=== PATIENT | female | born 1990 | race Caucasian/White ===

== ENCOUNTER 2016-09-29 14:38 | Emergency (ER) | payer SELFPAY ==
[~2016-09-29] VITALS: Ht 170.2 cm; Wt 56.8 kg
[~2016-09-29 14:38] MED LIST: Docusate Sodium PO; Ibuprofen PO; subutex
[2016-09-29 15:12] VITALS: BP 135/75; PULSE 108; RESP 20; O2SAT 97
--- NOTE | 2016-09-29 15:28 | ED.REPORT ---
HPI-Preg Under 20 Weeks Date of Service Sep 29, 2016 ED Provider: Dr. Zackary Mireles MD A 25 year old female with a history of opiate and meth abuse presents to the ED complaining of vaginal bleeding that began a few days ago. She is concerned that she may be . Her last menstrual cycle was 4 months ago. Patient reports that she is bleeding through multiple pads a day. Associated symptoms include belching, abdominal pain, worsening rash, ear pain and nausea. Patient has been experiencing worsening anxiety attacks for the past few days. Patient last used meth 2 days ago "out of a Gatorade bottle". She has been using NuvaRing but removed the ring after the bleeding began. Patient has an bed at [facility] scheduled for 10/18. She denies any suicidal or homicidal ideation, or alcohol use. Nursing Notes Stated Complaint: AND BLEEDING Chief Complaint: Female Abdominal Pain Nursing Notes Reviewed: Yes Allergies: Coded Allergies: Potassium Clavulanate (Verified Adverse Reaction, Intermediate, nausea and vomiting, 09/29/16) amoxicillin trihydrate (Verified Adverse Reaction, Intermediate, nausea and vomiting, 09/29/16) Scheduled ([subutex]) 8 MG DAILY ([Docusate Sodium]) 100 MG CAPSULE 100 MG PO BID Scheduled PRN ([Ibuprofen]) 600 MG TABLET 600 MG PO Q6H PRN PRN For Mild Pain General Time Seen by Provider: 15:29 Chief Complaint Vaginal bleeding Context: : Preg test pending Hx Obtained From: Patient Arrived By: Walk-in Onset Occurred: 3 days ago Symptom Duration: Since onset Progression Since Onset: Unchanged Location: : Abdomen lower Quality: Painful Radiation: : None Severity: Current: Mild Severity: Maximum: Mild Associated with: Reports: Nausea, Rash, Vaginal bleeding, Vomiting Pertinent Negative: Pt denies other symptoms Recent Healthcare: No recent hospitalization, Recent doctor visit Past Medical History Past Medical History Notes: No PCP (Often uses Urgent Care) Past Medical History 08/2014: Delivered at [facility]; patient was on suboxone at the time O positive Past Surgical History None reported Family History Father of alcohol abuse Smoking History Current Every Day Smoker Social History Alcohol Use: Denies alcohol use Drug Use: Meth (For the past 6 years ) Other Social History: , Homeless Ambulatory Status Independent Review of Systems Constitutional: Denies: Chills, Fever Respiratory: Denies: Shortness of breath Cardiovascular: Denies: Chest pain GI: Reports: Abdominal pain, Belching, Nausea, Vomiting Female: Reports: , Vaginal bleeding - abnl Skin: Reports Rash Neurologic: Denies: Change LOC Complete sys rev & neg: except as marked. Ears / Nose / Throat: Reports: Earache bilateral Psychiatric: Reports: Anxiety, Denies: Homicidal ideation, Suicidal ideation Physical Exam Initial Vital Signs Vital Signs (First) Date Time Temp Pulse Resp B/P Pulse Ox O2 Delivery O2 Flow Rate FiO2 09/29/16 15:12 37.1 108 20 135/75 97 Initial VS: Reviewed Head / Eyes: Atraumatic, Normocephalic, PERRL Extremities: Vascular intact, Neuro intact, No swelling, No tenderness Neurologic: Alert, Oriented, Nonfocal General/Constitutional: Awake, Alert Abdomen: Atraumatic, Soft, Non-tender, BS normoactive, No palpable mass, No pulsatile mass Female Genitourinary: Exam deferred : Exam deferred ENT: Atraumatic, Airway patent, Mucous membranes moist Respiratory / Chest: Atraumatic, Breath sounds NL, Breath sounds = bilat Cardiovascular: Heart rate NL, Regular rhythm, Heart sounds NL, No gallop, No murmurs, No rubs Neck: Atraumatic, Supple, No adenopathy Skin: Atraumatic, Warm Rash / Lesion Notes: LEISON: Patient has numerous scab leisions Psychiatric: Not suicidal, Not homicidal Abnormal Mood/Affect: Positive: Anxious Interpretation & Diagnostics Urine Dip : Negative Positive: Methamphetamine Opiates Lab Results Interpretation Result Diagram: 09/29/16 1552 Test 09/29/16 15:52 09/29/16 16:03 09/29/16 16:10 White Blood Count 15.2th/mm3 (3.8-10.1) Red Blood Count 4.61mil/mm3 (3.90-5.20) Hemoglobin 13.7g/dL (12.0-15.6) Hematocrit 38.0% (35.0-46.0) Mean Corpuscular Volume 82.4fL (81-100) Mean Corpuscular Hemoglobin 29.7pg (27.0-35.0) Mean Corpuscular Hemoglobin Concent 36.1% (32.0-37.0) Red Cell Distribution Width 13.2% (12.3-15.4) Platelet Count 266bil/L (150-400) Neutrophils (%) (Auto) 78.5% (40-74) Lymphocytes (%) (Auto) 10.9% (14-46) Monocytes (%) (Auto) 9.1% (4-12) Eosinophils (%) (Auto) 0.9% (0-5) Basophils (%) (Auto) 0.3% (0-3) HCG Beta Subunit < 0.500mIU/mL Hold [place] Top Tube Received (Received) Urine Color Dark yellow (YELLOW) Urine Appearance Hazy (CLEAR,HAZY) Urine pH 6.0 (5.0-8.0) Urine Specific [place] 1.025 (1.003-1.035) Urine Protein 100mg/dL (NEG,TRACE) Urine Glucose (UA) Negativemg/dL (NEGATIVE) Urine Ketones 40mg/dL (NEGATIVE) Urine Occult Blood Large (NEGATIVE) Urine Nitrite Negative (NEGATIVE) Urine Bilirubin Negative (NEGATIVE) Urine Urobilinogen Normalmg/dL (NORMAL) Urine Leukocyte Esterase Trace (NEGATIVE) Urine RBC 11-50/hpf (0-2) Urine WBC 6-10/hpf (0-5) Urine Epithelial Cells Many/hpf (NONE-MOD) Urine Crystals None seen (NONE SEEN) Urine Bacteria Few/hpf (NONE-FEW) Urine Hyaline Casts None/lpf (NONE) Urine Granular Casts None seen (NONE SEEN) Urine Waxy Casts None seen (NONE SEEN) Urine Red Blood Cell Casts None seen (NONE SEEN) Urine White Blood Cell Casts None seen (NONE SEEN) Urine Mucus None seen (None Seen) Urine Trichomonas None seen (NONE SEEN) Urine Yeast None (NONE SEEN) Urinalysis Comment None Urine Culture Reflexed Indicated Re-Eval/Medical Decision Re-Evaluation/Progress : Time of Eval: 18:06 Patient Status: Condition improved Re-Evaluation/Progress Note: Patient is rechecked. She is informed of her lab results and diagnosis. All of the patient's questions are addressed. She understands and agrees with the treatment plan. Counseled Regarding: Diagnosis, Lab results, Need for follow-up, When/why to return to ED Discharge & Departure Primary Impression: Substance abuse Additional Impression: Vaginal bleeding Disposition: Home Discharge Condition All VS Reviewed: Yes Condition: Stable Additional Instructions: In the ED today we find a negative test. Recent use of meth is noted. Do not use meth. Follow up with [facility] as advised by social work , keep your bed date at N Referrals: Ileana Hopkins MD (PCP) Scribe Attestation Portions of this note were transcribed by Bora Davenport. I, Dr. Mireles personally performed the history, physical exam and medical decision-making; I reviewed and confirmed the accuracy of the information in the transcribed note. Signed by: Bora Davenport, 09/29/16, 1805. copies to: Ileana Hopkins MD, Donald L MD Sep 29, 2016 15:28 BORA DAVENPORT Sep 29, 2016 15:31
[2016-09-29] MEDS ORDERED: LORazepam 2 mg Tablet PO ONE (16:05)
[2016-09-29 16:06] LABS: BASOPHILS % (AUTO) 0.3 % (0-3); EOSINOPHILS % (AUTO) 0.9 % (0-5); MONOCYTES % (AUTO) 9.1 % (4-12); Mean Corpuscular Hemoglobin 29.7 pg (27.0-35.0); Mean Corpuscular Volume 82.4 fL (81-100); NEUTROPHILS % (AUTO) 78.5 % (40-74); Platelet Count 266 bil/L (150-400)
[2016-09-29 16:51] LABS: APPEARANCE,URINE HAZY (CLEAR,HAZY); COLOR,URINE DARK YELLOW (YELLOW); OCCULT BLOOD,URINE LARGE (NEGATIVE)
[2016-09-29 16:53] LABS: UROBILINOGEN,URINE NORMAL (NORMAL)
[2016-09-29 18:18] VITALS: PULSE 108; RESP 20; O2SAT 97
== END 2016-09-29 18:19 | disposition home or self-care (01) ==
LOC: MERGE 14:38 → SED 14:38
DX: F19.10 Other psychoactive substance abuse, uncomplicated (principal); N93.9 Abnormal uterine and vaginal bleeding, unspecified; F17.200 Nicotine dependence, unspecified, uncomplicated; Z88.1 Allergy status to other antibiotic agents; Z88.8 Allergy status to other drugs, medicaments and biological substances

== ENCOUNTER 2017-02-20 22:06 | Emergency (ER) | payer OTHER ==
[~2017-02-20] VITALS: Ht 170.2 cm; Wt 68.2 kg
--- NOTE | 2017-02-20 22:08 | ED.REPORT ---
HPI-Overdose/Alcohol Toxicity Date of Service Feb 20, 2017 ED Provider: Kris Frazier MD Pt is a healthy 32 y/o female w/ a hx of infrequent heroin use presenting to the ED via EMS due to heroin overdose which occurred about 1 hour prior to arrival. The patient was found unresponsive by her friend not breathing and EMS was called. The friend began CPR. Upon arrival of EMS, CPR was stopped and 2 mg IV and 2 mg nasal Narcan was administered at 21:30 leading to regain of consciousness up to GCS of 15. Her vitals were stable on route and was asymptomatic. She did not vomit. At time of arrival she is GCS of 15 and is asymptomatic. She denies any pain or discomfort, trouble breathing, nausea. This was the first time she used in a few months and nothing like this has ever happened before. She has no past medical history and takes no medications. Nursing Notes Stated Complaint: HEROIN OVERDOSE Nursing Notes Reviewed: Yes (SignNow, meds not reconciled) Allergies: Coded Allergies: Amoxicillin Trihydrate (Verified Allergy, Severe, "INTOLERENCE", 07/18/09) Potassium Clavulanate (Verified Allergy, Severe, "INTOLERENCE", 07/18/09) General Time Seen by Provider: 22:06 Chief Complaint Drug overdose Modifying Factors: No vomiting post-ingest, Accidental Initial Psychiatric Assessment: Deny suicidal intent/plan Hx Obtained From: Patient, EMS Arrived By: Ambulance Onset Occurred: 1 - 4 hours ago Symptom Duration: 16 - 30 minutes Progression Since Onset: Resolved Severity: Current: No pain currently Severity: Maximum: No pain Recent Healthcare: No recent doctor visit, No recent hospitalization Similar Sx Previous: No Risk-Overdose/Alcohol Tox )( Suicide Risk Stratification RF Statements: Risk factors N/A Past Medical History Past Medical History Denies Past Surgical History Hand surgery Smoking History Current Every Day Smoker Social History Drug Use: IV drugs, Other Ambulatory Status Independent Review of Systems Constitutional: Denies: Chills, Fever Respiratory: Denies: Non-productive cough, Shortness of breath Cardiovascular: Denies: Chest pain, Dyspnea on exertion GI: Denies: Abdominal pain, Nausea, Vomiting Neurologic: Reports: Change LOC, Denies: Focal weakness, Headache, Numbness Complete sys rev & neg: except as marked. Physical Exam Initial Vital Signs Vital Signs (First) Date Time Temp Pulse Resp B/P Pulse Ox O2 Delivery O2 Flow Rate FiO2 6/1/17 22:16 36.6 99 12 136/88 100 Room Air Initial VS: Reviewed, Vital signs normal Head / Eyes: Atraumatic, Normocephalic, PERRL ENT: Mucous membranes moist, Conjunctiva normal, No scleral icterus Neck: Supple, Full range of motion Extremities: Vascular intact, Neuro intact, No swelling, No tenderness Skin: Warm, Dry, No cyanosis General/Constitutional: Awake, Alert, No acute distress, Cooperative, Not toxic appearing Behavior: Positive: Anxious Respiratory / Chest: Atraumatic, Breath sounds NL, Breath sounds = bilat, No respiratory distress, No rales, No rhonchi, No wheezing Cardiovascular: Heart rate NL, Regular rhythm, Heart sounds NL, Cap refill not delayed, Peripheral circulation NL Abdomen: Atraumatic, Soft, Non-tender, No guarding, No rebound Neurologic: Oriented X3, Speech NL, No motor deficits, No sensory deficits Psychiatric: Not suicidal, No hallucinations Abnormal Mood/Affect: Positive: Anxious Interpretation & Diagnostics Lab Results Interpretation Test 02/20/17 22:32 Hold Purple Top Tube Received (Received) Hold Blue Top Tube Received (Received) Hold [place] Top Tube Received (Received) Lab Results Interpretation: Laboratory testing not indicated Re-Eval/Medical Decision Med Decision/Clinical Course This is a 32-year-old female brought by EMS following an accidental heroin overdose requiring 2 mg of intranasal Narcan, and a subsequent 2 mg of IV Narcan as the patient had required bystander CPR. Patient immediately woke up, and now has no complaints. The patient claims this is first time she has used heroin an upper months. She denies any chest pain, shortness breath or injuries and this did brief CPR. She denies any major medical problems. She denies any infectious complications of heroin use. The patient demonstrated no clinical signs of withdrawal, which would be consistent that she had not used for a while. She was observed, but had no re- sedation or recurrent intoxication. She has been provided resources. She has been provided Narcan prepack. A referral to the [facility] as provided. Patient is discharged in good condition Source of Hx: Old records, EMS Re-Evaluation/Progress : Time of Eval: 23:25 Re-Evaluation/Progress Note: Pt rechecked. Appears well. Asymptomatic. Informed pt of plan for treatment. Pt understands and agrees with plan for treatment. F/U instructions and RTER warnings given. All questions addressed. Differential Diagnosis: Positive: Overdose, narcotic, Negative: Alcohol abuse, Anxiety, Bipolar disorder, Conversion disorder, Homicidal, Intoxication, alcohol, Intoxication, other drug, Overdose, other, Panic disorder, Personality disorder, Schizophrenia, Substance abuse disorder, Suicidal attempt, Suicidal gesture Counseled Regarding: Diagnosis, Lab results, Need for follow-up, When/why to return to ED Discharge & Departure Impression: Primary Impression: Accidental heroin overdose Encounter type: initial encounter Qualified Code: T40.1X1A - Poisoning by heroin, accidental (unintentional), initial encounter )( Condition at Discharge: No danger to self, No danger to others, No suicidal ideation, No homicidal ideation Disposition: Home Discharge Condition All VS Reviewed: Yes Condition: Stable Additional Instructions: 1. You had stopped breathing and briefly required CPR. 2. Consider following up with [facility] for assistance staying away from heroin. 3. We have provided a sample of narcan (naloxone) that can be admininstered intranasally in setting of overdose after calling 911 to arrive. 4. Return if new or worsening symptoms. Referrals: [facility] Scribe Attestation Portions of this note were transcribed by Haseeb Miller. I, Dr. Frazier personally performed the history, physical exam and medical decision-making; I reviewed and confirmed the accuracy of the information in the transcribed note. Signed by Luisito Stephens, 02/20/17 - [id number] Kris Frazier MD Feb 20, 2017 22:08 HASEEB MILLER Feb 20, 2017 22:14
[2017-02-20] MEDS ORDERED: _Naloxone 2 mg/2 mL 2 Syringe Kit (NASAL USE) NASAL PRN (22:10)
[2017-02-20 22:16] VITALS: BP 136/88; PULSE 99; RESP 12; O2SAT 100
--- NOTE | 2017-02-20 22:29 | ED.REPORT ---
HPI-Overdose/Alcohol Toxicity Date of Service Feb 20, 2017 ED Provider: Kris Frazier MD Nursing Notes Stated Complaint: HEROIN OVERDOSE Chief Complaint: Substance Abuse Allergies: Coded Allergies: Amoxicillin Trihydrate (Verified Allergy, Severe, "INTOLERENCE", 07/18/09) Potassium Clavulanate (Verified Allergy, Severe, "INTOLERENCE", 07/18/09) Past Medical History Past Medical History Denies Past Surgical History Hand surgery Smoking History Current Every Day Smoker Social History Drug Use: IV drugs, Other Physical Exam Initial Vital Signs Vital Signs (First) Date Time Temp Pulse Resp B/P Pulse Ox O2 Delivery O2 Flow Rate FiO2 02/20/17 22:16 36.6 99 12 136/88 100 Room Air Interpretation & Diagnostics Lab Results Interpretation Test 02/20/17 22:32 Hold Purple Top Tube Received (Received) Hold Blue Top Tube Received (Received) Hold [place] Top Tube Received (Received) Kris Frazier MD Feb 20, 2017 22:29
[2017-02-20 23:04] VITALS: BP 141/83; PULSE 90; RESP 20; O2SAT 94
[2017-02-20 23:52] VITALS: BP 146/84; PULSE 90; RESP 17; O2SAT 96
== END 2017-02-20 23:40 | disposition home or self-care (01) ==
LOC: SED 22:06 → EDUNIT# 22:06 → EDBD 22:06 → SED 23:40
DX: T40.1X1A Poisoning by heroin, accidental (unintentional), initial encounter (principal); X58.XXXA Exposure to other specified factors, initial encounter; Y92.9 Unspecified place or not applicable; Y93.89 Activity, other specified; Y99.8 Other external cause status; F17.200 Nicotine dependence, unspecified, uncomplicated; R40.2412 Glasgow coma scale score 13-15, at arrival to emergency department; Z88.0 Allergy status to penicillin

== ENCOUNTER 2017-03-24 00:52 | Emergency (ER) | payer OTHER ==
[~2017-03-24] VITALS: Ht 170.2 cm; Wt 65.9 kg
[2017-03-24 00:55] VITALS: BP 128/85; PULSE 86; RESP 18; O2SAT 100
--- NOTE | 2017-03-24 01:42 | ED.REPORT ---
HPI-Eye Problem Date of Service Mar 24, 2017 ED Provider: Moises Evans DO Patient is a 26 year old female with a history of Hep C who presents to the ED complaining of bilateral eye erythema onset 3 days. Associated symptoms include itchiness and irritation. She reports that it started in her left eye but has since spread to her right eye. Nursing Notes Stated Complaint: LT/RT EYE IRRITATION Chief Complaint: Eye Nursing Notes Reviewed: Yes Allergies: Coded Allergies: Potassium Clavulanate (Verified Allergy, Severe, "INTOLERENCE", 03/24/17) amoxicillin trihydrate (Verified Allergy, Severe, "INTOLERENCE", 03/24/17) Scheduled ([subutex]) 8 MG DAILY ([Docusate Sodium]) 100 MG CAPSULE 100 MG PO BID Scheduled PRN ([Ibuprofen]) 600 MG TABLET 600 MG PO Q6H PRN PRN For Mild Pain General Time Seen by MD: 01:41 Chief Complaint Both eyes affected Hx Obtained From: Patient Arrived By: Walk-in Sudden in Onset?: Yes Onset Occurred: 3 days ago Symptom Duration: Since onset Location: : Eye both Severity: Current: Mild Recent Healthcare: No recent hospitalization, Recent doctor visit Similar Sx Previous: No Past Medical History Past Medical History Hep C Past Surgical History Hand surgery Smoking History Current Every Day Smoker Social History Drug Use: IV drugs, Other Ambulatory Status Independent Review of Systems Constitutional: Denies: Chills, Fever Eyes: Reports: Eye pain bilateral, Redness bilateral, Denies: Blurred bilateral, Visual loss bilateral Ears / Nose / Throat: Denies: Earache bilateral, Nasal congestion, Sore throat Skin: Denies Itching, Denies Rash Complete sys rev & neg: except as marked. Respiratory: Denies: Non-productive cough, Shortness of breath Physical Exam Initial Vital Signs Vital Signs (First) Date Time Temp Pulse Resp B/P Pulse Ox O2 Delivery O2 Flow Rate FiO2 03/24/17 00:55 36.8 86 18 128/85 100 Room Air Initial VS: Reviewed Head / Eyes: Atraumatic, Normocephalic visual acuity intact no cells in the interior chamber bilateral conjunctival injection yellow mattering of the left eye lid General/Constitutional: Awake, Alert, No acute distress Skin: Atraumatic, Color NL, No rash, Warm, Dry Neurologic: Oriented X3, Speech NL, No motor deficits, No sensory deficits Respiratory / Chest: Atraumatic, Breath sounds NL, Breath sounds = bilat, No respiratory distress Abdomen: Atraumatic, Soft, Non-tender Psychiatric: Affect NL, Mood NL Re-Eval/Medical Decision Med Decision/Clinical Course Bilateral conjunctival injection consistent with conjunctivitis. Patient was discharged with Erythromycin ointment. Re-Evaluation/Progress : Time of Eval: 01:50 Re-Evaluation/Progress Note: Discussed diagnosis and plan for discharge. Patient understands and agrees to plan. All questions were addressed. Counseled Regarding: Diagnosis, Need for follow-up, When/why to return to ED Discharge & Departure Primary Impression: Bilateral conjunctivitis Conjunctivitis type: acute Acute conjunctivitis type: bacterial Qualified Code: H10.33 - Unspecified acute conjunctivitis, bilateral Disposition: Home Discharge Condition All VS Reviewed: Yes Condition: Stable Patient Instructions: Conjunctivitis (ED) Additional Instructions: You have pink eye in both eyes. Use the Erythromycin ointment 3x a day for 5 days. Follow up with the clinic referred in 48 hours if your eyes do not improve. Return to the emergency department if you develop any new or concerning symptoms Referrals: [facility] Scribe Attestation Portions of this note were transcribed by Lexie Hannah. I, Dr. Evans personally performed the history, physical exam and medical decision-making; I reviewed and confirmed the accuracy of the information in the transcribed note. Signed by: Luisito Bass, 03/24/17 and 0202. Moises Evans DO Mar 24, 2017 01:42 Loli Hannah Mar 24, 2017 01:54
[2017-03-24] MEDS ORDERED: _Erythromycin 0.5% Oph Oint 3.5 gm AFFECT_EYE SCH (08:30)
== END 2017-03-24 02:40 | disposition home or self-care (01) ==
LOC: SED 00:55
DX: H10.33 Unspecified acute conjunctivitis, bilateral (principal); B96.89 Other specified bacterial agents as the cause of diseases classified elsewhere; F17.200 Nicotine dependence, unspecified, uncomplicated; Z88.0 Allergy status to penicillin; Z88.8 Allergy status to other drugs, medicaments and biological substances